=== PATIENT | male | born 1995 | race Two or more races ===

== ENCOUNTER 2024-04-13 03:15 | Emergency (ER) | payer MEDICAID, OTHER ==
[~2024-04-13] VITALS: Ht 185.4 cm; Wt 90.9 kg
[2024-04-13 04:00] VITALS: BP 130/77; PULSE 86; RESP 16; TEMP 98.2; O2SAT 98
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
[2024-04-13] MEDS: cefTRIAXone SOD 1,000 MG VL IM ONE (04:18)
[2024-04-13] MEDS: LIDOCAINE 1% HCL (LOCAL ANESTH.) INJ 20ML MDV ID ONE (04:30)
[2024-04-13] MEDS ORDERED: AMOX875T4 PO (04:34)
== END 2024-04-13 05:25 | disposition home or self-care (01) ==
LOC: ER 03:15
DX: S01.81XA Laceration without foreign body of other part of head, initial encounter (principal); Y04.0XXA Assault by unarmed brawl or fight, initial encounter; Y93.89 Activity, other specified; Y92.89 Other specified places as the place of occurrence of the external cause; Y99.8 Other external cause status
CPT/HCPCS: 12011; 96372; 99283; J0696; J2003